=== PATIENT | male | born 1990 | race Caucasian/White ===

== ENCOUNTER 2018-10-12 00:14 | Outpatient (CLI) | payer OTHER ==
--- NOTE | 2018-10-12 06:32 | Ultrasound Report ---
Reason: CALCULUS OF KIDNEY Procedure Date: 10/12/2018 Accession Number: [id number] / [id number] Procedure: US - Retroperitoneal CPT Code: FULL RESULT: EXAM: RENAL ULTRASOUND EXAM DATE: 10/12/2018 01:43 AM. CLINICAL HISTORY: CALCULUS OF KIDNEY. COMPARISON: None. TECHNIQUE: Real-time scanning was performed with static images obtained. FINDINGS: Right Kidney: 10.0 x 4.1 x 3.1 cm. Normal echotexture with no stones, contour-deforming masses, or hydronephrosis. Left Kidney: 9.9 x 3.9 x 3.0 cm. Normal echotexture with no stones, contour-deforming masses, or hydronephrosis. Bladder: Bilateral jets seen. The prevoid bladder volume was 409 cc. The postvoid bladder volume was 5 cc. Other: None. IMPRESSION: Normal renal ultrasound. No evident kidney stone. [facility]
== END 2018-10-12 00:15 | disposition home or self-care (01) ==
LOC: DI 00:14
PROVIDERS: ATTEND Urology
DX: N20.0 Calculus of kidney (principal)
CPT/HCPCS: 76770

== ENCOUNTER 2019-03-14 09:44 | Emergency (ER) | payer OTHER ==
--- NOTE | 2019-03-14 10:16 | ED Physician Documentation ---
PD HPI UPPER EXT INJURY - Stated complaint Stated Complaint: L HAND LAC - Chief complaint Chief Complaint: Laceration - History obtained from History obtained from: Patient - History of Present Illness Location: Left, Finger (base of thumb in webbing) Type of injury: Laceration Where injury occurred: Home Timing - onset: Today Timing - details: Abrupt onset (he was trying to pry open something with a knife, and it slipped, causing laceration at base of the thumb. No numbness nor weakness.) Worsened by: Palpating. No: Moving Associated symptoms: No: Weakness, Numbness Similar symptoms before: Has not had sx before Recently seen: Not recently seen Review of Systems Skin: reports: Laceration (s) Neurologic: denies: Focal weakness, Numbness PD PAST MEDICAL HISTORY - Past Medical History Cardiovascular: None Respiratory: None Neuro: None Endocrine/Autoimmune: None : Kidney stones - Present Medications Home Medications: Ambulatory Orders Medication Instructions Recorded Confirmed No Known Home Medications 03/14/19 03/14/19 - Allergies Allergies/Adverse Reactions: Allergies Allergy/AdvReac Type Severity Reaction Status Date / Time No Known Drug Allergies Allergy Verified 03/14/19 09:50 - Social History Does the pt smoke?: No Smoking Status: Never smoker Does the pt drink ETOH?: No Does the pt have substance abuse?: No PD ED PE NORMAL - Vitals Vital signs reviewed: Yes - General General: Alert and oriented X 3, No acute distress, Well developed/nourished - Derm Derm: Normal color, Warm and dry - Extremities Extremities: Other (left thumb base on ulnar side webbing with 1 cm laceration, no involvement of tendons nor vessels. ) - Neuro Neuro: Alert and oriented X 3, No motor deficit, No sensory deficit Results - Vitals Vitals: Vital Signs - 24 hr 03/14/19 03/14/19 09:48 11:44 Temperature 36.7 C 36.6 C Heart Rate 100 75 Respiratory 18 18 Rate Blood Pressure 144/93 H 125/84 H O2 Saturation 99 99 Oxygen O2 Source Room air Procedures - Laceration (location) left hand base of thumb Length in cm: 2 Wound type: Curved, Into subcut fat, Clean. No: Into muscle Neurovascular status: Sensory intact, Motor intact, Vascular intact Tendon involvement: Tendon intact Anesthesia: Lidocaine 2% with epi Wound Preparation: Wound explored, To the base. No: FB identified Skin layer closure: Nylon, Running, Size #-0 - enter number (4), Sutures - enter # (9) Other: Patient tolerated well, No complications, Neurovascular intact, Dressing applied, Tetanus UTD Complexity: Simple PD MEDICAL DECISION MAKING - ED course Complexity details: considered differential, d/w patient Departure - Departure Disposition: 01 Home, Self Care Clinical Impression: Laceration of left thumb Qualifiers: Encounter type: initial encounter Damage to nail status: without damage Foreign body presence: without foreign body Qualified Code(s): S61.012A - Laceration without foreign body of left thumb without damage to nail, initial encounter Instructions: ED Laceration Hand Follow-Up: LYNNE REYES MD [Primary Care Provider] - Comments: It is okay to wash and shower. Clean off the wound twice a day with soap and water, or peroxide and water. Apply some antibiotic ointment to it to keep it moist. Also to watch for signs of infection such as purulence, redness or increasing pain. Return to your primary care or the ER at the specified time for suture removal. Suture removal 10 to 12 days. Tylenol or ibuprofen if needed for pains. Gentle use of the hand is okay initially and progress as able. Discharge Date/Time: 03/14/19 11:45
[2019-03-14 11:45] VITALS: BP 125/84
== END 2019-03-14 11:45 | disposition home or self-care (01) ==
LOC: ED 09:44
DX: S61.012A Laceration without foreign body of left thumb without damage to nail, initial encounter (principal); W26.0XXA Contact with knife, initial encounter; Y92.009 Unspecified place in unspecified non-institutional (private) residence as the place of occurrence of the external cause
CPT/HCPCS: 12001; 99282; 99283